=== PATIENT | female | born 2000 | race Caucasian/White ===

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

== ENCOUNTER → 2024-12-07 12:24 | Outpatient (BNVA) | payer SELFPAY | PROVIDERS: PCP Specialist | DX: Z02.89 Encounter for other administrative examinations (principal) ==